=== PATIENT | female | born 1960 | race Caucasian/White ===

== ENCOUNTER → 2017-02-15 | Outpatient (CLI) | payer BC ==
--- NOTE | 2017-02-16 13:11 | MAMMOGRAPHY REPORT ---
BILATERAL DIGITAL SCREENING MAMMOGRAM TOMOSYNTHESIS WITH CAD: 02/15/2017 CLINICAL HISTORY: Routine screening. Patient has no complaints. TECHNIQUE: Breast tomosynthesis in addition to standard 2D mammography was performed. Current study was also evaluated with a Computer Aided Detection (CAD) system. COMPARISON: Comparison is made to exams dated: 02/15/2016 mammogram, 09/24/2014 mammogram, 07/08/2012 mammogram, 07/07/2011 mammogram, and 05/05/2010 mammogram - [facility]. BREAST COMPOSITION: The tissue of both breasts is heterogeneously dense, which may obscure small ma sses. FINDINGS: There is a possible small cluster of calcifications seen within the left superior posterio r breast on the MLO view, thought to project laterally on the cc view, for which spot magnification views are recommended for further evaluation. There are 2 adjacent round partially circumscribed an d partially obscured masses seen within the left upper outer quadrant, one measuring 13 mm and the o ther measuring 7 mm, best seen on the tomosynthesis images. Recommend ultrasound and possible addit ional spot compression tomosynthesis views for further evaluation. These may represent cysts. The remainder of both breasts are stable compared to prior exams, without suspicious masses, calcifi cations, or areas of architectural distortion noted. Nodular 7 mm asymmetry seen within the left la teral anterior breast is stable compared to prior exams including the 2011 exam. Right medial breas t asymmetry on the cc view is also stable. IMPRESSION: ACR BI-RADS CATEGORY 0: INCOMPLETE EVALUATION: NEED ADDITIONAL IMAGING EVALUATION Left breast calcifications and left breast masses, for which additional imaging evaluation is recomm ended. The patient will be called to schedule an appointment. Approximately 10% of breast cancers are not detected with mammography. A negative mammographic repor t should not delay biopsy if a clinically suggestive mass is present. Elvira White M.D. /:02/16/2017 08:01:42 Case Monitor: Destinee STAPLES(Brigido)(M), [facility] letter sent: Addl Imaging 0 BI-RADS Code: ACR BI-RADS Category 0: Incomplete Evaluation: Need Additional Imaging Evaluation
== END | disposition home or self-care (01) ==
LOC: C.MAMM 15:19
PROVIDERS: ATTEND Obstetrics & Gynecology
DX: Z12.31 Encounter for screening mammogram for malignant neoplasm of breast (principal); N63 Unspecified lump in breast; R92.8 Other abnormal and inconclusive findings on diagnostic imaging of breast

== ENCOUNTER → 2017-02-23 | Outpatient (CLI) | payer BC ==
--- NOTE | 2017-02-23 15:35 | MAMMOGRAPHY REPORT ---
UNILATERAL LEFT DIGITAL DIAGNOSTIC MAMMOGRAM AND TARGETED LEFT ULTRASOUND: 02/23/2017 CLINICAL HISTORY: Callback from screening mammogram for left breast calcifications and left breast m asses. TECHNIQUE: Spot magnification left CC and ML views were obtained. COMPARISON: Comparison is made to exams dated: 02/15/2017 mammogram, 02/15/2016 mammogram, 09/24/2014 mammogram, 07/25/2013 mammogram, 07/08/2012 mammogram, and 07/07/2011 mammogram - [facility]. BREAST COMPOSITION: The tissue of the left breast is heterogeneously dense, which may obscure small masses. FINDINGS: There is a small 4 mm cluster of punctate and amorphous calcifications seen within the lef t upper outer quadrant, not clearly evident on prior exams. The cluster is indeterminate and stereo tactic biopsy is recommended for further evaluation. Targeted ultrasound was performed of the area of the masses seen on the recent screening mammogram. In the left superior subareolar breast, there is an oval anechoic circumscribed mass which measures 1.2 x 0.6 x 0.9 cm. This corresponds with the larger mammographic mass and is consistent with a be nign simple cyst. In the left breast at 1:00 subareolar region, there is an oval anechoic benign si mple cyst which measures 5 x 2 x 5 mm, which is felt to correspond with the other mammographic mass. Other small anechoic benign cysts were also noted during the exam in the left 1:00 breast, includi ng a 5 x 8mm anechoic cyst in the left breast at 1:00, 3 cm from the nipple, and a 3 mm cyst in the left breast at 1:00, 4 cm from the nipple. No suspicious solid masses are evident. IMPRESSION: ACR BI-RADS CATEGORY 4: SUSPICIOUS, TARGETED ULTRASOUND ACR BI-RADS CATEGORY 4: SUSPICI OUS 1. Small 4 mm cluster of calcifications in the left upper outer quadrant. The calcifications are i ndeterminate and stereotactic biopsy is recommended for further evaluation. 2. Benign cysts in the left breast on ultrasound, the largest measuring 12 mm, which correspond wit h the mammographic masses. A phone call was made to the physician's office to confirm faxed results were received. The patient has been verbally notified of the results. She tentatively scheduled the biopsy before leaving the department. Approximately 10% of breast cancers are not detected with mammography. A negative mammographic repor t should not delay biopsy if a clinically suggestive mass is present. Elvira White M.D. ah/:02/23/2017 14:54:50 Supervisor Carding: Destinee Ye, [facility] letter sent: Abnormal 4/5 BI-RADS Code: ACR BI-RADS Category 4: Suspicious Ultrasound BI-RADS: ACR BI-RADS Category 4: Suspic ious
== END | disposition home or self-care (01) ==
LOC: C.MAMM 14:16
PROVIDERS: ATTEND Obstetrics & Gynecology
DX: R92.1 Mammographic calcification found on diagnostic imaging of breast (principal); N63 Unspecified lump in breast; N60.02 Solitary cyst of left breast

== ENCOUNTER → 2017-03-09 | Outpatient (CLI) | payer BC ==
--- NOTE | 2017-03-09 13:21 | Discharge Instructions ---
Discharge Instructions Procedure Procedure Date: Mar 09, 2017. Reason for visit: Left Calcifications. Discharge Discharge Date: Mar 09, 2017. Discharge Diagnosis: status post breast biopsy Instructions Activity Recommendations: Additional Limitations (see below) Return to School/Work: no limitations Recommended Home Diet: No Limitations Provider Instructions: ACTIVITY RECOMMENDATIONS: * No lifting, pushing, pulling or exercising the affected side for three days. RETURN TO SCHOOL/WORK: * You may return to work/school after the procedure, but do not perform any strenuous activities for 24 to 48 hours. MEDICATIONS: * Tylenol (two 325 mg) every four to six hours if needed for mild pain (if not allergic to Tylenol). DIET: * Resume previous diet. SPECIAL CARE INSTRUCTIONS: * Keep biopsy site dry for 24 hours. May shower after 24 hours, but do not soak (bathe) incision. * May remove Tegaderm (plastic patch) tomorrow AFTER showering. * Leave the steri-strips on for one week. Allow the steri-strips to fall off by themselves. If not off after one week, you may remove them. You may place a Bandaid crosswise over the strips, if desired. * Apply ice 10 minutes on and 10 minutes off as needed. * Wear a bra at bedtime to sleep more comfortably for 2-3 days. * Your referring physician should have the results after approximately 5 to 7 business days. * Call for unusual bleeding, fever, drainage, etc or if you have any questions call during normal business hours or after hours call Dr White, . FOLLOW UP VISIT: Follow-up with Referring Physician as scheduled. Allergies Coded Allergies: Penicillins (Unverified Allergy, Mild, hives, 12/24/09) Rodrigue Valenciay Recommendations: Call your doctor if: * Temperature above 101 degrees * Pain not relieved by pain medicine ordered * There is increased drainage or redness from any incision * You have any unanswered questions or concerns. Your Doctors Instructions noted above were prepared by provider Elvira White. Patient Signature Section: Patient Instructions Signature Page Rachel Christopher Patient (or Guardian) Signature/Date: I have read and understand the instructions given to me by my caregivers. Caregiver/RN/Doctor Signature/Date: The above-named patient and/or guardian has received patient instructions on this date. + Original Patient Signature Page (only) stays with chart. Please make copy for patient.
--- NOTE | 2017-03-09 16:32 | MAMMOGRAPHY REPORT ---
STEREOTACTIC GUIDED BIOPSY LEFT BREAST: 03/09/2017 CLINICAL HISTORY: Indeterminate calcifications in the left upper outer quadrant. PATIENT CONSENT: The procedure, risks, benefits, and alternatives of stereotactic biopsy with clip p juan were discussed with the patient, and verbal and written consent was obtained. A timeout wa s performed immediately prior to the procedure. PROCEDURE DESCRIPTION: With stereotactic guidance, aseptic technique, and lidocaine as a local anest hetic (1% lidocaine to anesthetize the skin and 1% lidocaine with epinephrine to anesthetize the den per tissues), the area of concern in the left upper outer quadrant was sampled multiple times with a 9-gauge vacuum-assisted biopsy needle (BroadClip). The path of approach was lateral. The specim en radiograph demonstrates calcifications to be present in the samples. The samples containing calc ifications (labeled "A") were from the samples without calcifications (labeled "B"). A me josue marker clip was placed at the biopsy site. This was confirmed on postprocedure mammograms. Direct pressure was applied at the biopsy site and hemostasis was readily achieved. The patient greg erated the procedure without complication. She was given wound care instructions. COMPARISON: Comparison is made to exams dated: 02/23/2017 ultrasound, 02/23/2017 mammogram, 02/15/2017 m ammogram, 02/15/2016 mammogram, 09/24/2014 mammogram, and 07/25/2013 mammogram - [facility]. IMPRESSION: STEREOTACTIC GUIDED BIOPSY Stereotactic biopsy of indeterminate calcifications in the left upper outer quadrant, with clip boubacar daigle. The patient will receive pathology results from her referring provider. Elvira White M.D. /:03/09/2017 13:37:22 Bath Tester: Destinee Ye, [facility]
--- NOTE | 2017-03-09 16:33 | MAMMOGRAPHY REPORT ---
UNILATERAL LEFT DIGITAL DIAGNOSTIC MAMMOGRAM: 03/09/2017 CLINICAL HISTORY: Status post left breast stereotactic biopsy. TECHNIQUE: Left CC and LM views were obtained. COMPARISON: Comparison is made to exams dated: 02/15/2017 mammogram, 02/15/2016 mammogram, 09/24/2014 mammogram, and 02/23/2017 mammogram - [facility]. BREAST COMPOSITION: The tissue of the left breast is heterogeneously dense, which may obscure small masses. FINDINGS: A preprocedural left LM view was obtained for biopsy planning purposes. Postprocedural l eft ML and and cc views were also obtained, which shows a new biopsy marker clip at the site of the biopsied calcifications in the left upper outer quadrant. No significant postbiopsy hematoma is see n. IMPRESSION: POST PROCEDURE IMAGING FOR MARKER PLACEMENT New biopsy marker clip status post left breast stereotactic biopsy. Pathology results are pending. Approximately 10% of breast cancers are not detected with mammography. A negative mammographic repor t should not delay biopsy if a clinically suggestive mass is present. Elvira White M.D. ah/:03/09/2017 13:38:49 Reports Developer: Destinee Ye [facility] BI-RADS Code: Post Procedure Imaging For Marker Placement
== END | disposition home or self-care (01) ==
LOC: C.MAMM 12:24
PROVIDERS: ATTEND Obstetrics & Gynecology
DX: R92.0 Mammographic microcalcification found on diagnostic imaging of breast (principal)